=== PATIENT | female | born 1960 | race Caucasian/White ===

== ENCOUNTER → 2019-12-21 | Outpatient (CLI) | payer BC ==
--- NOTE | 2019-12-21 15:06 | CT ---
EXAMINATION TYPE: CT abdomen pelvis wo con DATE OF EXAM: 12/21/2019 COMPARISON: None HISTORY: possible stones bladder concern CT DLP: 291 mGycm Automated exposure control for dose reduction was used. TECHNIQUE: Helical acquisition of images was performed from the lung bases through the pelvis. FINDINGS: LUNG BASES: No significant abnormality is appreciated. LIVER/GB: No significant abnormality is appreciated. PANCREAS: No significant abnormality is seen. SPLEEN: No significant abnormality is seen. ADRENALS: No significant abnormality is seen. KIDNEYS: Right kidney: There is a punctate 2 mm nonobstructing right renal calculus upper pole. Left kidney: No renal calculi or hydronephrosis. Bladder: Bladder is nondistended and limited in assessment. No calcifications within the bladder. If there is concern for bladder abnormality correlate with ultrasound as clinically warranted. ADENOPATHY: None visualized. OSSEOUS STRUCTURES: Hypertrophic and degenerative change of the vertebral column with severe degener ative disc disease L5-S1. Disc bulging is seen L4-L5 likely resulting in canal stenosis and bilateral foraminal encroachment. BOWEL: Small hiatal hernia noted. Bowel gas pattern nonspecific with retained fecal debris. Appendix normal. OTHER: Aorta of normal caliber. No evidence of aneurysm. IMPRESSION: NONOBSTRUCTING 2 MM UPPER POLE RIGHT RENAL CALCULUS.
== END | disposition home or self-care (01) ==
LOC: RADCTMAIN 14:35
PROVIDERS: ATTEND Urology
DX: N20.0 Calculus of kidney (principal)
CPT/HCPCS: 74176

== ENCOUNTER 2020-05-01 10:26 | Day surgery (SDC) | payer BC ==
[~2020-05-01 10:26] MED LIST: LACTATED RINGERS 1,000 ML IV SCH
[2020-05-01 10:45] VITALS: RESP 16; TEMP 97.1
[2020-05-01] MEDS ORDERED: PROPOFOL 10 MG/ML 20 ML VIAL IV ONE (11:27)
--- NOTE | 2020-05-01 11:29 | P.GSHP ---
History of Present Illness H&P Date: 05/01/20 Chief Complaint: Colon cancer screening Patient here today for colonoscopy. Last 10-12 years ago. That study was normal. No bowel complaints. No family history of colon cancer. Past Medical History Additional Past Medical History / Comment(s): hital hernia History of Any Multi-Drug Resistant Organisms: None Reported Past Surgical History: Tubal Ligation Past Anesthesia/Blood Transfusion Reactions: No Reported Reaction Past Psychological History: No Psychological Hx Reported Smoking Status: Never smoker Past Alcohol Use History: Occasional Past Drug Use History: None Reported Medications and Allergies Home Medications Medication Instructions Recorded Confirmed Type Ascorbic Acid [Vitamin C] 1 tab PO DAILY 04/27/20 05/01/20 History Biotin 1 cap PO DAILY 04/27/20 05/01/20 History Calcium/Magnesium/Zinc 1 tab PO DAILY 04/27/20 05/01/20 History [Xdarlbh-Mxllhphsj-Vxfd Tablet] Cider Vinegar [Apple Cider Vinegar] 1 tab PO DAILY 04/27/20 05/01/20 History Hormone Cream, Unknown 1 dose TOPICAL FR 04/27/20 05/01/20 History Multivitamin/Iron/Folic Acid 1 tab PO DAILY 04/27/20 05/01/20 History [Centrum Adults Tablet] [place]-3 Fatty Acids/Fish Oil [Fish 1 cap PO DAILY 04/27/20 05/01/20 History Oil 1,000 mg Softgel] [place] 1 tab PO DAILY 04/27/20 05/01/20 History Vitamin E Acetate [Vitamin E] 1 tab PO DAILY 04/27/20 05/01/20 History Allergies Allergy/AdvReac Type Severity Reaction Status Date / Time ciprofloxacin [From Cipro] Allergy Chest Pain Verified 05/01/20 10:46 codeine AdvReac Nausea & Verified 05/01/20 10:46 Vomiting pentazocine [From [place]win] AdvReac Nausea & Verified 05/01/20 10:46 Vomiting prochlorperazine AdvReac MUSCLE Verified 05/01/20 10:46 [From Compazine] SPASMS Surgical - Exam Vital Signs Temp Pulse Resp BP Pulse Ox 97.1 F L 87 16 176/76 97 05/01/20 10:44 05/01/20 10:44 05/01/20 10:44 05/01/20 10:44 05/01/20 10:44 Physical exam: General: Well-developed, well-nourished HEENT: Normocephalic, sclerae nonicteric Abdomen: Nontender, nondistended Extremities: No edema Neuro: Alert and oriented Assessment and Plan (1) Colon cancer screening Narrative/Plan: Will proceed with colonoscopy at this time Current Visit: Yes Status: Acute Code(s): Z12.11 - ENCOUNTER FOR SCREENING FOR MALIGNANT NEOPLASM OF COLON SNOMED Code(s): 891795942
--- NOTE | 2020-05-01 11:43 | P.PCN ---
Date of Procedure: 05/01/20 Procedure(s) Performed: PREOPERATIVE DIAGNOSIS: Colon cancer screening POSTOPERATIVE DIAGNOSIS: Diverticulosis PROCEDURE: Colonoscopy ANESTHESIA: MAC SURGEON: Russell King M.D. SPECIMENS: None ENDOSCOPIC PROCEDURE: The patient was placed on the endoscopy table in the left decubitus position. The Olympus colonoscope was inserted into the anus and passed under direct visualization to the base of the cecum. The appendiceal orifice was visualized. From that point the scope was slowly withdrawn inspe cting all surfaces carefully. There were no neoplastic inflammatory or polypoid lesions throughout the cecum, ascending, transverse, descending, sigmoid and rectum. There was mild left-sided diverticulosis noted. Digital rectal examination was normal. The patient was taken to the recovery room in stable condition per anesthesia guidelines. RECOMMENDATIONS: Increase fiber. Follow-up colonoscopy 10 years.
[2020-05-01 12:08] VITALS: BP 135/76; PULSE 71
== END 2020-05-01 12:23 | disposition home or self-care (01) ==
LOC: ORWHC2ENDO 10:26
PROVIDERS: ATTEND Surgery
DX: Z12.11 Encounter for screening for malignant neoplasm of colon (principal); K57.30 Diverticulosis of large intestine without perforation or abscess without bleeding; Z87.19 Personal history of other diseases of the digestive system; Z98.51 Tubal ligation status; Z79.899 Other long term (current) drug therapy; Z88.1 Allergy status to other antibiotic agents; Z88.5 Allergy status to narcotic agent; Z88.8 Allergy status to other drugs, medicaments and biological substances; Z88.4 Allergy status to anesthetic agent
CPT/HCPCS: 45378; J2704

== ENCOUNTER → 2020-09-11 | Outpatient (CLI) | payer BC ==
--- NOTE | 2020-09-11 09:34 | XR ---
EXAMINATION TYPE: XR chest 2V DATE OF EXAM: 09/11/2020 COMPARISON: NONE TECHNIQUE: PA and lateral views submitted. HISTORY: Chest pain FINDINGS: The lungs are clear and there is no pneumothorax, pleural effusion, or focal pneumonia. Hypertrophi c change of the spine. No overt failure. Heart size normal. IMPRESSION: 1. No acute process.
== END | disposition home or self-care (01) ==
LOC: RADXRMAIN 08:59
PROVIDERS: ATTEND Family Medicine
DX: R07.89 Other chest pain (principal)
CPT/HCPCS: 71046

== ENCOUNTER → 2020-11-05 | Outpatient (CLI) | payer BC ==
--- NOTE | 2020-11-05 17:04 | BD ---
EXAMINATION TYPE: Axial Bone Density DATE OF EXAM: 11/05/2020 COMPARISON: NONE CLINICAL HISTORY: POSTMENOPAUSAL SCREENING Height: 62 IN Weight: 129 LBS FRAX RISK QUESTIONS: RISK FACTORS HISTORY OF: Family History of Osteoporosis: MOTHER Active: YES Postmenopausal woman: AGE 52 Take estrogen and/or progesterone medications: ESTROGEN CREAM FOR 1 YEAR MEDICATIONS: Additional Medications: CALCIUM, MAGNESIUM, ZINC, VIT D, ESTROGEN CREAM, VIT C, EVENING PRIMROSE, FIS H OIL, VILERIAN ROOT EXAM MEASUREMENTS: Bone mineral densitometry was performed using the Mimoco System. Bone mineral density as measured about the Lumbar spine is: ----- L1-L4(G/cm2): 1.145 T Score Values are as follows: ----- L2: -0.5 ----- L3: -0.3 ----- L4: -0.5 ----- L1-L4: -0.3 Bone mineral density BASELINE Bone mineral density about the R hip (g/cm2): 0.868 Bone mineral density about the L hip (g/cm2): 0.862 T Score values are as follows: -----R Neck: -1.2 -----L Neck: -1.3 -----R Total: -0.5 -----L Total: -0.4 Bone mineral density BASELINE IMPRESSION: Osteopenia (T Score between -2.5 and -1). There is slightly increased risk of fracture and the patient may be considered for treatment. Re-Screen 2-5 years. NOTE: T-SCORE=SD OF THE YOUNG ADULT MEAN.
--- NOTE | 2020-11-06 10:03 | MM ---
Reason for exam: screening (asymptomatic). Last mammogram was performed 2 years and 7 months ago. History: Patient is postmenopausal and had first child at age 32. Took hormonal contraceptives for 20 years. Taking estrogen. Physical Findings: A clinical breast exam by your physician is recommended on an annual basis and results should be correlated with mammographic findings. MG Screening Mammo w CAD Bilateral CC and MLO view(s) were taken. Prior study comparison: April 09, 2018, mammogram, performed at [facility]. April 04, 2016, mammogram, performed at [facility]. The breast tissue is heterogeneously dense. This may lower the sensitivity of mammography. There is no discrete abnormality. No significant changes when compared with prior studies. ASSESSMENT: Negative, BI-RAD 1 RECOMMENDATION: Routine screening mammogram of both breasts in 1 year.
== END | disposition home or self-care (01) ==
LOC: RADMAMWWP 07:46
PROVIDERS: ATTEND Family Medicine
DX: Z12.31 Encounter for screening mammogram for malignant neoplasm of breast (principal); M85.80 Other specified disorders of bone density and structure, unspecified site
CPT/HCPCS: 77067; 77080

== ENCOUNTER → 2021-09-04 | Outpatient (CLI) | payer BC ==
--- NOTE | 2021-09-05 11:56 | CT ---
EXAMINATION TYPE: CT abdomen pelvis wo con DATE OF EXAM: 09/04/2021 HISTORY: ABDOMINAL PAIN, DIVERTICULITIS CT DLP: 613 mGycm. Automated Exposure Control for Dose Reduction was Utilized. TECHNIQUE: CT scan of the abdomen and pelvis is performed without oral or IV contrast. COMPARISON: CT abdomen and pelvis December 21, 2019 FINDINGS: Within the limitations of a non-contrast study, the following observations are made. LUNG BASES: No significant abnormality is appreciated. LIVER/GB: No significant abnormality is appreciated. PANCREAS: No significant abnormality is seen. SPLEEN: No significant abnormality is seen. ADRENALS: No significant abnormality is seen. KIDNEYS: Stable 4 mm nonobstructing right renal calculus upper pole level axial image 25. BOWEL: Suboptimal evaluation of bowel without enteric contrast. No suspicious small or large bowel di latation. Normal-appearing appendix from the cecum in the right lower quadrant. Diverticula in the si gmoid colon redemonstrated. No CT evidence for acute diverticulitis. Stable small sized hiatal hernia . GENITAL ORGANS: Anteverted uterus redemonstrated. LYMPH NODES: No new greater than 1cm abdominal or pelvic lymph nodes are appreciated. OSSEOUS STRUCTURES: Spine is straightened on sagittal images with mild to moderate multilevel spurrin g and disc space narrowing redemonstrated. OTHER: No significant additional abnormality is seen. IMPRESSION: Sigmoid colonic diverticulosis redemonstrated. No CT evidence for acute diverticulitis. N o suspicious new or acute findings seen.
== END | disposition home or self-care (01) ==
LOC: RADCTMAIN 15:41
PROVIDERS: ATTEND Family Medicine
DX: K57.30 Diverticulosis of large intestine without perforation or abscess without bleeding (principal)
CPT/HCPCS: 74176

== ENCOUNTER → 2021-09-12 | Outpatient (CLI) | payer BC ==
--- NOTE | 2021-09-12 09:46 | FL ---
EXAMINATION TYPE: FL UGI air DATE OF EXAM: 09/12/2021 9:32 AM COMPARISON: NONE CLINICAL HISTORY: k21.9 Gastro-esophageal reflux disease without eso A total of 70 seconds of fluoroscopic time was utilized during procedure and 34 images obtained. Preliminary view of the abdomen reveals a normal bowel gas pattern. Mild degenerative changes are not ed of the thoracolumbar spine. Upper GI examination was performed according to the air contrast techn ique. Barium and effervescent crystal was swallowed without difficulty or delay. Esophageal perista lsis and motility are within normal limits. There is no evidence for esophagitis, intraluminal mass, or hiatal hernia. Mild gastroesophageal reflux noted. The stomach has a normal appearance in terms o f its size, shape and location. No gastric filling defects or ulcer craters are seen. The duodenal bulb and sweep are also free of intraluminal lesion or ulcer crater. IMPRESSION: Mild gastroesophageal reflux
== END | disposition home or self-care (01) ==
LOC: RADUSWWP 08:03
PROVIDERS: ATTEND Family Medicine
DX: K21.9 Gastro-esophageal reflux disease without esophagitis (principal)
CPT/HCPCS: 74246

== ENCOUNTER → 2021-09-19 | Outpatient (CLI) | payer BC ==
--- NOTE | 2021-09-19 11:27 | USB ---
Reason for exam: clinical finding. History: Patient is postmenopausal and had first child at age 32. Reductions of both breasts, June 2021. Took hormonal contraceptives for 20 years. Taking estrogen. Indicated problem(s): lump or thickening in the left breast. Physical Findings: Nurse did not find any significant physical abnormalities on exam. US Breast Limited LT Left limited breast ultrasound including focal area of concern, retroareolar and axilla demonstrates a 3.0 x 1.3 x 2.5cm solid lesion at 7 o'clock and a 1.4 x 0.9 x 1.6cm solid lesion at 7 o'clock. Probable post operative changes. Recommend short term follow up end on October 2021. These results were verbally communicated with the patient and result sheet given to the patient on 09/19/21. ASSESSMENT: Probably benign, BI-RAD 3 RECOMMENDATION: Ultrasound of the left breast in 2 months.
== END | disposition home or self-care (01) ==
LOC: RADUSWWP 08:27
PROVIDERS: ATTEND Plastic Surgery
DX: N63.0 Unspecified lump in unspecified breast (principal)

== ENCOUNTER → 2022-02-25 | Outpatient (CLI) | payer BC ==
--- NOTE | 2022-02-25 12:38 | MM ---
Reason for Exam: Follow-up at short interval from prior study. Clinical finding. Last mammogram was performed 1 year(s) and 4 month(s) ago. Patient History: Menarche at age 12. First Full-Term at age 32. Late child-bearing (after 30). Postmenopausal. Currently using Estrogen. Patient used Hormonal Contraceptives for 20 years. 06/2021, Bilateral Reduction. Risk Values: Linda 5 year model risk: 2.1%. NCI Lifetime model risk: 9.4%. Film Views: Bilateral CC views were taken. Bilateral MLO views were taken. Bilateral spot compression CC views were taken. Bilateral spot compression MLO views were taken. Prior Study Comparison: 04/04/2016 Screening Mammogram, [facility]. 04/09/2018 Screening Mammogram, [facility]. 11/05/2020 Bilateral Screening Mammogram, [facility]. Tissue Density: The breast tissue is heterogeneously dense. This may lower the sensitivity of mammography. Findings: Analyzed By CAD. Chronic nodularity in the left breast. Interval bilateral breast reduction. Right subareolar focal asymmetry which becomes less pronounced on spot Cc but persists on spot MLO. Left medial and lower inner quadrant focal asymmetry are mixed density, containing fat as well, likely early fat necrosis. Two such areas are present lower inner quadrant and 9-10 o'clock. Results were communicated with the patient verbally at time of the exam. Technique: Method: Targeted. Findings: Left limited breast ultrasound including focal area of concern, retroareolar and axilla demonstrates a 2.3 x 1.1 x 2.4cm palpable lesion at 7 o'clock, mammographic coorelate, heterogeneous, some small cystic areas of through transmission, possible early fat necrosis and a 1.3 x 1.0 x 1.4cm lesion at 8 o'clock similar to the 7 o'clock area but not palpable. Right limited breast ultrasound including focal area of concern, retroareolar and axilla demonstrates dense subareolar tissue with ducts and extension of dense tissue to 9 o'clock. Scanned right subareolar 6-9 o'clock and left 7-10 o'clock. Results were communicated with the patient verbally at time of the exam. Overall Assessment: Probably benign, BI-RAD 3 Assessment: MG 3D diag mammo w/cad BRUNA - Bilateral: Incomplete: need additional imaging evaluation, BI-RAD 0. US breast limited BILAT - Bilateral: Probably benign, BI-RAD 3. Management: Diagnostic Mammogram of both breasts in 6 months.
== END | disposition home or self-care (01) ==
LOC: RADMAMWWP 07:59
PROVIDERS: ATTEND Obstetrics & Gynecology
DX: N63.0 Unspecified lump in unspecified breast (principal)
CPT/HCPCS: 77062; 77066

== ENCOUNTER → 2022-09-05 | Outpatient (CLI) | payer BC ==
--- NOTE | 2022-09-05 11:23 | MM ---
Reason for Exam: Clinical finding. Last screening mammogram was performed 6 month(s) ago. Patient History: Menarche at age 12. First Full-Term at age 32. Late child-bearing (after 30). Postmenopausal. Currently using Estrogen. Patient used Hormonal Contraceptives for 20 years. 06/2021, Bilateral Reduction. Risk Values: Linda 5 year model risk: 2.2%. NCI Lifetime model risk: 9.1%. Prior Study Comparison: 04/09/2018 Screening Mammogram, [facility]. 11/05/2020 Bilateral Screening Mammogram, [facility]. 02/25/2022 Bilateral MG 3D diag mammo w/cad BRUNA, [facility]. Tissue Density: The breast tissue is heterogeneously dense. This may lower the sensitivity of mammography. Findings: Analyzed By CAD. Scattered areas of suspected postsurgical fat necrosis with increased calcifications from prior. No suspicious masses or calcifications or distortions. Overall Assessment: Incomplete: need additional imaging evaluation, BI-RAD 0 Management: Diagnostic Breast Ultrasound of both breasts. A clinical breast exam by your physician is recommended on an annual basis and results should be correlated with mammographic findings. This exam should not preclude additional follow-up of suspicious palpable abnormalities. Results were given to the patient verbally at the time of exam. Electronically signed and approved by: Tanner Tanner DO
--- NOTE | 2022-09-05 11:23 | USB ---
Reason for Exam: Follow-up at short interval from prior study. Patient History: Menarche at age 12. First Full-Term at age 32. Late child-bearing (after 30). Postmenopausal. Currently using Estrogen. Patient used Hormonal Contraceptives for 20 years. 06/2021, Bilateral Reduction. Risk Values: Linda 5 year model risk: 2.2%. NCI Lifetime model risk: 9.1%. Technique: Method: Whole Breast Handheld. Prior Study Comparison: 04/09/2018 Screening Mammogram, [facility]. 11/05/2020 Bilateral Screening Mammogram, [facility]. 02/25/2022 Bilateral MG 3D diag mammo w/cad BRUNA, [facility]. Findings: The whole breast of both breasts, the axilla of both breasts and the retroareolar of both breasts were scanned. The bilateral whole breast, axillas and retroareolar regions were evaluated. Redemonstration of slightly heterogenous cystic and solid areas which are not significantly changed given differences in technique from prior on 02/25/2022. Given increased calcification from prior mammography, the these areas are felt to represent fat necrosis. Overall Assessment: Benign, BI-RAD 2 Management: Screening Mammogram of both breasts in 1 year. A clinical breast exam by your physician is recommended on an annual basis and results should be correlated with mammographic findings. This exam should not preclude additional follow-up of suspicious palpable abnormalities. Results were given to the patient verbally at the time of exam. Electronically signed and approved by: Tanner Tanner DO
[2022-09-05 14:42] LABS: Basophils # (A) 0.07 X 10*3/uL (0.00-0.10); Basophils % (A) 1.2 %; Eosinophils # (A) 0.13 X 10*3/uL (0.04-0.35); Eosinophils % (A) 2.2 %; HCT 37.2 % (37.2-46.3); HGB 11.7 g/dL (12.0-15.0); Immature Grans, Automated 0.2 %; Lymphocytes # (A) 2.57 X 10*3/uL (0.90-5.00); Lymphocytes % (A) 44.1 %; MCHC 31.5 g/dL (32.0-37.0); Monocytes # (A) 0.46 X 10*3/uL (0.20-1.00); Monocytes % (A) 7.9 %; NRBC Per 100 WBC 0 /100 WBCS (0.0-0.0); Neutrophils # (A) 2.59 X 10*3/uL (1.80-7.70); Neutrophils % (A) 44.4 %; Platelet Count 360 X 10*3/uL (140-440); RBC 4.18 X 10*6/uL (4.10-5.20); RDW 14.5 % (11.5-14.5); WBC 5.83 X 10*3/uL (4.50-10.00)
[2022-09-05 15:24] LABS: ALT 20 U/L (8-44); AST 24 U/L (13-35); African American GFR (CKD) 112.4 (60.0-200.0); Albumin 4.5 g/dL (3.8-4.9); Albumin/Globulin Ratio 1.67 (1.60-3.17); Alkaline Phosphatase 91 U/L (41-126); Blood Urea Nitrogen 13.8 mg/dL (9.0-27.0); Calcium 9.6 mg/dL (8.7-10.3); Carbon Dioxide 25.9 mmol/L (20.0-27.5); Chloride 103 mmol/L (96-109); Globulin 2.7 g/dL (1.6-3.3); Glucose 96 mg/dL (70-110); LDL Cholesterol,Calculated 69.7 mg/dL (0.0-131.0); Potassium 4.2 mmol/L (3.5-5.5); Sodium 139 mmol/L (135-145); Total Protein 7.2 g/dL (6.2-8.2)
== END | disposition home or self-care (01) ==
LOC: RADMAMWWP 08:59
PROVIDERS: ATTEND Internal Medicine
DX: R92.8 Other abnormal and inconclusive findings on diagnostic imaging of breast (principal); Z78.0 Asymptomatic menopausal state
CPT/HCPCS: 77066; 80053; 80061; 82306; 84443; 85025